=== PATIENT | female | born 1950 | race Caucasian/White ===

== ENCOUNTER → 2018-11-21 14:00 | Outpatient (CLI) | payer OTHER, SELFPAY ==
[2016-02-29 19:59] VITALS: BMI 27.3
[2018-11-21 16:00] LABS: T4 Free Direct 1.34 ng/dL (0.76-1.46); Thyroid Stim Hormone (TSH) 1.08 uIU/mL (0.358-3.74)
--- OUTSIDE RECORDS SUMMARY | 2019-01-23 13:53 | XMS RPT_ITS ---
:1950 Author Organization OHIP Care Team Providers Name Role Phone JIMBO ANGELES Attending Unavailable JIMBO ANGELES Referring Unavailable JIMBO ANGELES Referring Unavailable JIMBO ANGELES Referring Unavailable Pastor Perez Attending Unavailable Pastor Perez Referring Unavailable Pastor Perez Primary Care Unavailable PROBLEMS PROBLEMS DATE TYPE CONDITION / CODE ATTENDING STATUS SOURCE 01/28/2016 Active Essential NA Active [facility] (primary) [facility] [place] hypertension / Repository I10(ICD-10) 01/29/2016 Active Takotsubo syndrome NA Active [facility] / I51.81(ICD-10) [facility] [place] Repository 03/13/2018 Active Palpitations / NA Active [facility] R00.2(ICD-10) [facility] [place] Repository PROCEDURES PROCEDURES No Procedure Records FoundRESULTS RESULTS THYROID STIM HORMONE Collected: 11/21/2018 Status: F Source: [place] (TSH) 2:04 PM [facility] [place] [facility] Order Comment: Comments: ] TYPE CODE TESTS RESULT OUT OF RANGE REFERENCE UNITS LAB L501.9520 0.358-3.74 uIU/mL Normal TSH 1.08 Performed By: #### L501.9520, L506.0400 #### [place] [facility] [address] [place], [address] T4 FREE DIRECT Collected: 11/21/2018 Status: F Source: [place] 2:04 PM [facility] [place] [facility] Order Comment: Comments: ] TYPE CODE TESTS RESULT OUT OF RANGE REFERENCE UNITS LAB [id number] 0.76-1.46 ng/dL Normal T4 FREE 1.34 DIRECT Performed By: #### L501.9520, L506.0400 #### [facility] [address] [place], [address] BASIC METABOLIC PANL Collected: 03/13/2018 Status: F Source: [place] 2:41 PM [facility] [place] REPOSITORY TYPE CODE TESTS RESULT OUT OF REFERENCE UNITS RANGE LAB GLU 74-99 mg/dL Glucose 95 Result Comment: The [place] Diabetes Association (ADA) provides guidance for cutoff values for fasting glucose and random glucose. The ADA defines fasting as no caloric intake for at least 8 hours. Fas ting plasma glucose results between 100 to 125 mg/dL indicate increased risk for diabetes (prediabetes). Fasting plasma glucose results greater than or equal to 126 mg/dL meet the criteria for diagnosis of diabetes. In the absence of unequivocal hyperglycemia, results should be confirmed by repeat testing. In a patient with classic symptoms of hyperglycemia or hyperglycemic crisis, random plasma glucose results greater than or equal to 200 mg/dL meet the criteria for diagnosis of diabetes. Reference: Standards of Medical Care in Diabetes 2016, [place] Diabetes Association. Diabetes Care. 2016.39(Suppl 1). LAB BUN 7-21 mg/dL BUN 18 LAB CRET 0.58-0.96 mg/dL Creatinine 0.88 LAB NA 136-144 mmol/L Sodium 141 LAB K 3.7-5.1 mmol/L Potassium 4.3 LAB CL 97-105 mmol/L Chloride 101 LAB CO2 22-30 mmol/L CO2 28 LAB AGAP 9-18 mmol/L Anion Gap 12 LAB CA 8.5-10.2 mg/dL Calcium, Total 9.2 LAB GFRAA eGFR- Amer. >60 LAB GFRNAA . eGFR-All Other Races >60 Result Comment: eGFR (Estimated GFR) Units of measure: mL/min/1.73 meters squared eGFR is derived from the reexpressed MDRD Study equation using the following parameters: serum creatinine, age, gender and race. The creatinine assay has been calibrated to be traceable to IDMS. An eGFR <60 mL/min/1.73m2 for >3 months is consistent with chronic kidney disease. Refer to KDOQI guidelines for clinical interpretation. In patients with unstable renal function, e.g. those with acute kidney injury, the eGFR may not accurately reflect actual GFR. Performed By: #### BMP, NTBNP #### [facility] [address] [place], [place] [address] NT PRO BNP Collected: 03/13/2018 Status: F Source: [place] 2:41 PM [facility] [place] REPOSITORY TYPE CODE TESTS RESULT OUT OF REFERENCE UNITS RANGE LAB PBNP <125 pg/mL PRO B Natr 51 Peptide Performed By: #### BMP, NTBNP #### [facility] [address] [place], [place] [address] PROGRESS Observed: 03/13/2018 Status: COMPLETED Source: [place] 1:40 PM [facility] REPOSITORY HNO ID: [id number] Author: Jimbo Angeles Service: (none) Author Type: Physician Type: Progress Notes Filed: 03/13/2018 5:51 PM Note Text: Heart and Vascular [facility] SECTION OF HEART FAILURE and CARDIAC TRANSPLANT MEDICINE OUTPATIENT VISIT DATE March 13, 2018 OUTPATIENT VISIT TYPE NEW PRIMARY CARE PHYSICIAN: Pastor Perez MD ([facility]) [address] [place] [address] REFERRING PHYSICIAN: SELF CHIEF COMPLAINT: Takotsubo history Ongoing fatigue HISTORY OF PRESENT ILLNESS: Ms. Boudreaux presents today for an initial visit to the Heart Failure Clinic. Alexx Boudraeux is a 67 year old female with a history of non-obstructive CAD by cath 2016 (40-50% LAD disease), hypertension, dyslipidemia, and history of stress-induced CM diagnosed in 12/2015 with reduced LVEF 50% that subsequently improved to 65% in February 2016. She had one additional visit to ED in February 2016 where she developed mid-sternal chest pain. She went to the ED and had troponins checked which were normal. Subsequently her LVEF normalized. She is followed by Dr. Dayton Marsh at [facility]. She states her Takotsubo episode in 2016 was relatively mild in symptomology. She does not recall any stressors or triggers. Thus she has some anxiety about whether or not she might have a recurrence. She reports that initially she regained almost all of her energy after her initial episode of Takotsubo. However, in the past 6 months, she has been experiencing more fatigue and occasional palpitations. She has been taking 1 day off per week because she simply feels wiped out. She has occasionally has heaviness in the chest that might be indigestion. 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 SOB: Yes: mild, but can do > 2 flights of stairs Fatigue: Yes: chronic Orthopnea:No PND: No Edema:No Chest Pain:Yes: occasional pressure but mild Palpitations:Yes, that last for a few seconds and are sporadic Dizziness/Lightheadedness:No Syncope:No Appetite: good Diet:regular Fluid Restriction: No Regular Exercise: No PAST CARDIAC HISTORY: Heart failure: systolic Non-ischemic, subtype: Takotsubo. Her cardiac history is also significant for HTN. Device: NA. PAST MEDICAL HISTORY Diagnosis Date - Fibromyalgia - Hypertension - Hypothyroidism - Migraines PAST SURGICAL HISTORY Procedure Laterality Date - PAST SURGICAL HISTORY OF thyroid surgery - PAST SURGICAL HISTORY OF Right 1992 benign breast lump removed - REMOVE TONSILS/ADENOIDS,<12 Y/O - VAGINAL HYSTERECTOMY SOCIAL HISTORY Social History Substance Use Topics - Smoking status: Never Smoker - Smokeless tobacco: Never Used - Alcohol use 1.5 oz/week 1 Glasses of Wine (5oz) per week FAMILY HISTORY Problem Relation Age of Onset - Diabetes Father - Colon Cancer Mother ALLERGIES: ALLERGIES Allergen Reactions - Erythromycin - Tcn [Tetracyclines] CURRENT MEDICATIONS: atorvastatin (LIPITOR) 20 mg tablet Take 1 tablet by mouth daily at bedtime. levothyroxine (LEVOXYL) 100 mcg tablet Take 100 mcg by mouth daily before breakfast. UBIDECARENONE/VITAMIN E MIXED (COQ10 SG 100 ORAL) Take by mouth. carvedilol (COREG) 6.25 mg tablet Take 1 tablet by mouth twice daily. nitroglycerin sublingual (NITROQUICK) 0.4 mg SL tablet Dissolve 1 tablet under the tongue as needed. FOR CHEST PAIN. IF NO RELIEF CALL 911 Cholecalciferol, Vitamin D3, 2,000 unit cap Take 6,000 Units by mouth once daily. Magnesium 250 mg tab Take 250 mg by mouth twice daily. OTC NUTRITIONAL SUPPLEMENT [facility] nutritional supplement at [email or web address]. Takes 500 mg twice daily lactobacillus combo no.13 1 billion cell cpDR Take 1 capsule by mouth once daily. aspirin 81 mg chewable tablet Take 1 tablet by mouth once daily. lisinopril (ZESTRIL, PRINIVIL) 5 mg tablet Take 5 mg by mouth once daily. DOXEPIN 10 MG CAP two tablets at bedtime for sleep REVIEW OF SYSTEMS: GENERAL: Negative for: Weight loss or gain, Fever or Chills, Weakness and Sleep difficulties. HEENT: Negative for: Headache, Impaired Vision, Glasses, Hearing Impairment, Ringing in Ears, Nosebleeds, Poor dental care, Bleeding Gums, Dentures NECK: Negative for: Swelling, Pain, Stiffness RESPIRATORY: Negative for: Cough, Blood in Sputum, Shortness of breath, Wheezing, Apnea GASTROINTESTINAL: Negative for: Trouble swallowing, Heartburn, Change in bowel habits, Blood in stool, Dark black stools MUSCULOSKELETAL: Negative for: Muscle or joint pain, Stiffness , Joint swelling NEUROLOGIC/PSYCHIATRIC: Negative for: Weakness, Paralysis, Numbness, Tingling, Tremor, Nervousness, Depressed mood, Memory loss SKIN: Negative for: Rashes, Itching HEMATOLOGICAL/LYMPHATIC: Negative for: Easy bruising , Easy bleeding ENDOCRINE: Negative for: Heat or cold intolerance, Excessive sweating, Frequent urination, Frequent thirst PHYSICAL EXAMINATION: BP 136/71 Pulse 64 Ht 167.6 cm (5' 6) Wt 80.7 kg (178 lb) SpO2 97% BMI 28.73 kg/m? General: mildly overweight and mildly anxious woman in no distress, well appearing Skin: No clubbing, no cyanosis. Eyes: Extra ocular movements intact, Pale conjunctiva, Non- icteric sclerae Neck: Neck veins are not distended Lungs: Chest clear to auscultation Heart: Rhythm: regular rate and rhythm, Rate: normal, no murmur Abdomen: Palpation normal, Bowel Sounds: Present Extremities: Normal exam of the extremities Peripheral Pulses: Normal CARDIOVASCULAR MEDICINE TESTIN01/28/2016 TTE: - The left ventricle is normal in size. Left ventricular systolic function is mildly decreased. EF = 50 ? 5% (visual est.) Baseline left ventricular diastolic function was not evaluated due to inconsistent or technically suboptimal data and No LAE, however E/E' would suggest elevated flling pressures. EF 45-50%, dynamic function of basal segments. - The right ventricle is normal in size. Right ventricular systolic function is normal. - Moderae focal thickening and calcification of the anterior MV leaflet. Mild (1+) ?MR - There is moderate (2+) tricuspid valve regurgitation. - Mildly prominent ascending aorta to 4.0 cm. 01/28/2016 LHC: LM: Normal LAD: 40-50% focal proximal stenosis LCX: Non-dominant, normal RCA: Dominant, normal ? Ventriculography Approximate LVEF 40-45%. The apical anterior segment is severely hypokinetic and apex is akinetic. Mild mitral regurgitation. 03/08/2016 TTE: - The left ventricle is normal in size. There is mild upper septal left ventricular hypertrophy. Left ventricular systolic function is normal. EF = 60 ? 5% (visual est.) Baseline left ventricular diastolic function was not evaluated due to inconsistent or technically suboptimal data. - The right ventricle is normal in size. Right ventricular systolic function is normal. - Estimated right ventricular systolic pressure is 26 mmHg consistent with normal pulmonary artery pressures. Estimated right atrial pressure is 5 mmHg. - Ascending aorta is mildly dilated. - Exam was compared with the prior echocardiographic exam performed on 01/28/2016. LV function has normalized. Cholesterol, Total Date Value Ref Range Status 07/01/2017 161 100 - 199 mg/dL Final HDL Cholesterol Date Value Ref Range Status 07/01/2017 70 >55 mg/dL Final LDL Cholesterol Date Value Ref Range Status 07/01/2017 71 60 - 129 mg/dL Final Triglyceride Date Value Ref Range Status 07/01/2017 99 30 - 149 mg/dL Final NT Pro BNP Date Value Ref Range Status 01/28/2016 616 (H) <125 pg/mL Final TSH Date Value Ref Range Status 01/28/2016 2.570 0.400 - 5.500 uU/mL Final 06/17/2017 T4 direct 1.25 TSH 0.93 I have personally reviewed the Electrocardiogram, Laboratory Testing, Echocardiogram and Cardiac CT Coronary Angiography. IMPRESSION: Ms. Boudreaux presents today for an initial visit to the Heart Failure Clinic. Alexx Boudreaux is a 67 year old female with a history of non-obstructive CAD by cath 2015 (40-50% LAD disease), hypertension, dyslipidemia, and history of stress-induced CM diagnosed in 12/2015 with reduced LVEF 50% that subsequently improved to 65% in February 2016. However, she has continued to have subjective fatigue with very rare palpitations and atypical chest pain. We will obtain an echocardiogram today and some blood work. In general, she appears compensated on exam. We will encourage exercise and believe the fatigue is likely non-cardiac in nature. NYHA Functional Class: II Stage: C heart failure Heart Failure specific medications (list current, note updates or changes, note prior intolerance): BB: carvedilol 6.25mg BID ACEI/ARB/ARNI: lisinopril 5mg MRA: NA Diuretic: NA Digoxin: NA Vasodilators: SLN PRN Anti-arrhythmics: NA Ivabradine:? NA Other anti-HTN:? NA PLAN AND RECOMMENDATIONS: -- for CAD, asymptomatic, continue with aspirin and statin medication -- discussed indications for sublingual nitroglycerin (chest pressure, heaviness) -- for hx of takotsubo, 10% recurrence risk, agree with continuation of BB and JOJO -- obtain repeat echocardiogram with strain -- Cardiac rehab phase II -- check HaiderroBSHAMIR Ashford MD [employer], PGY6 Pager [phone] 1:40 PM I personally interviewed, confirmed and edited the above information as obtained by others. I estimate this patients dry weight is 178lb. Followup appointment with Brett Angeles MD in 12 months. COUNSELING: We discussed the following non-pharmacological measures during this visit: ? Smoking and alcohol abstinence/cessation, if applicable ? Dietary and medication compliance ? Monitoring daily weights and blood pressures ? Exercise regimen ? When to call our office I spent 60 minutes in this visit, with more than 50% of the time devoted to patient counseling. Brooks Angeles MD March 13, 2018 5:50 PM CNOV Observed: 03/13/2018 Status: COMPLETED Source: [place] 12:00 PM [facility] REPOSITORY Office Visit (CARD CHF DANIELE) ALEXX BOUDREAUX ([id number]) 1950 F Date Time Provider Department 03/13/18 12:00 PM JIM[facility] ANGELES [facility] During your visit today, we recorded the following information about you: Pulse Blood pressure Weight Height 64/minute 136/71 80.7 kg 1.676 m Brooks Joan Angeles MD 03/13/2018 5:51 PM Signed Heart and Vascular [facility] SECTION OF HEART FAILURE and CARDIAC TRANSPLANT MEDICINE OUTPATIENT VISIT DATE March 13, 2018 OUTPATIENT VISIT TYPE NEW PRIMARY CARE PHYSICIAN: Pastor Perez MD ([facility]) [address] [place] [address] REFERRING PHYSICIAN: SELF CHIEF COMPLAINT: Takotsubo history Ongoing fatigue HISTORY OF PRESENT ILLNESS: Ms. Boudreaux presents today for an initial visit to the Heart Failure Clinic. Alexx Boudreaux is a 67 year old female with a history of non-obstructive CAD by cath 2016 (40-50% LAD disease), hypertension, dyslipidemia, and history of stress-induced CM diagnosed in 12/2015 with reduced LVEF 50% that subsequently improved to 65% in February 2016. She had one additional visit to ED in February 2016 where she developed mid-sternal chest pain. She went to the ED and had troponins checked which were normal. Subsequently her LVEF normalized. She is followed by Dr. Dayton Marsh at [facility]. She states her Takotsubo episode in 2016 was relatively mild in symptomology. She does not recall any stressors or triggers. Thus she has some anxiety about whether or not she might have a recurrence. She reports that initially she regained almost all of her energy after her initial episode of Takotsubo. However, in the past 6 months, she has been experiencing more fatigue and occasional palpitations. She has been taking 1 day off per week because she simply feels wiped out. She has occasionally has heaviness in the chest that might be indigestion. 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 SOB: Yes: mild, but can do > 2 flights of stairs Fatigue: Yes: chronic Orthopnea:No PND: No Edema:No Chest Pain:Yes: occasional pressure but mild Palpitations:Yes, that last for a few seconds and are sporadic Dizziness/Lightheadedness:No Syncope:No Appetite: good Diet:regular Fluid Restriction: No Regular Exercise: No PAST CARDIAC HISTORY: Heart failure: systolic Non-ischemic, subtype: Takotsubo. Her cardiac history is also significant for HTN. Device: NA. PAST MEDICAL HISTORY Diagnosis Date - Fibromyalgia - Hypertension - Hypothyroidism - Migraines PAST SURGICAL HISTORY Procedure Laterality Date - PAST SURGICAL HISTORY OF thyroid surgery - PAST SURGICAL HISTORY OF Right 1992 benign breast lump removed - REMOVE TONSILS/ADENOIDS,<12 Y/O - VAGINAL HYSTERECTOMY SOCIAL HISTORY Social History Substance Use Topics - Smoking status: Never Smoker - Smokeless tobacco: Never Used - Alcohol use 1.5 oz/week 1 Glasses of Wine (5oz) per week FAMILY HISTORY Problem Relation Age of Onset - Diabetes Father - Colon Cancer Mother ALLERGIES: ALLERGIES Allergen Reactions - Erythromycin - Tcn [Tetracyclines] CURRENT MEDICATIONS: atorvastatin (LIPITOR) 20 mg tablet Take 1 tablet by mouth daily at bedtime. levothyroxine (LEVOXYL) 100 mcg tablet Take 100 mcg by mouth daily before breakfast. UBIDECARENONE/VITAMIN E MIXED (COQ10 SG 100 ORAL) Take by mouth. carvedilol (COREG) 6.25 mg tablet Take 1 tablet by mouth twice daily. nitroglycerin sublingual (NITROQUICK) 0.4 mg SL tablet Dissolve 1 tablet under the tongue as needed. FOR CHEST PAIN. IF NO RELIEF CALL 911 Cholecalciferol, Vitamin D3, 2,000 unit cap Take 6,000 Units by mouth once daily. Magnesium 250 mg tab Take 250 mg by mouth twice daily. OTC NUTRITIONAL SUPPLEMENT [facility] nutritional supplement at [email or web address]. Takes 500 mg twice daily lactobacillus combo no.13 1 billion cell cpDR Take 1 capsule by mouth once daily. aspirin 81 mg chewable tablet Take 1 tablet by mouth once daily. lisinopril (ZESTRIL, PRINIVIL) 5 mg tablet Take 5 mg by mouth once daily. DOXEPIN 10 MG CAP two tablets at bedtime for sleep REVIEW OF SYSTEMS: GENERAL: Negative for: Weight loss or gain, Fever or Chills, Weakness and Sleep difficulties. HEENT: Negative for: Headache, Impaired Vision, Glasses, Hearing Impairment, Ringing in Ears, Nosebleeds, Poor dental care, Bleeding Gums, Dentures NECK: Negative for: Swelling, Pain, Stiffness RESPIRATORY: Negative for: Cough, Blood in Sputum, Shortness of breath, Wheezing, Apnea GASTROINTESTINAL: Negative for: Trouble swallowing, Heartburn, Change in bowel habits, Blood in stool, Dark black stools MUSCULOSKELETAL: Negative for: Muscle or joint pain, Stiffness , Joint swelling NEUROLOGIC/PSYCHIATRIC: Negative for: Weakness, Paralysis, Numbness, Tingling, Tremor, Nervousness, Depressed mood, Memory loss SKIN: Negative for: Rashes, Itching HEMATOLOGICAL/LYMPHATIC: Negative for: Easy bruising , Easy bleeding ENDOCRINE: Negative for: Heat or cold intolerance, Excessive sweating, Frequent urination, Frequent thirst PHYSICAL EXAMINATION: BP 136/71 Pulse 64 Ht 167.6 cm (5' 6) Wt 80.7 kg (178 lb) SpO2 97% BMI 28.73 kg/m? General: mildly overweight and mildly anxious woman in no distress, well appearing Skin: No clubbing, no cyanosis. Eyes: Extra ocular movements intact, Pale conjunctiva, Non- icteric sclerae Neck: Neck veins are not distended Lungs: Chest clear to auscultation Heart: Rhythm: regular rate and rhythm, Rate: normal, no murmur Abdomen: Palpation normal, Bowel Sounds: Present Extremities: Normal exam of the extremities Peripheral Pulses: Normal CARDIOVASCULAR MEDICINE TESTIN01/28/2016 TTE: - The left ventricle is normal in size. Left ventricular systolic function is mildly decreased. EF = 50 ? 5% (visual est.) Baseline left ventricular diastolic function was not evaluated due to inconsistent or technically suboptimal data and No LAE, however E/E' would suggest elevated flling pressures. EF 45-50%, dynamic function of basal segments. - The right ventricle is normal in size. Right ventricular systolic function is normal. - Moderae focal thickening and calcification of the anterior MV leaflet. Mild (1+) ?MR - There is moderate (2+) tricuspid valve regurgitation. - Mildly prominent ascending aorta to 4.0 cm. 01/28/2016 LHC: LM: Normal LAD: 40-50% focal proximal stenosis LCX: Non-dominant, normal RCA: Dominant, normal ? Ventriculography Approximate LVEF 40-45%. The apical anterior segment is severely hypokinetic and apex is akinetic. Mild mitral regurgitation. 03/08/2016 TTE: - The left ventricle is normal in size. There is mild upper septal left ventricular hypertrophy. Left ventricular systolic function is normal. EF = 60 ? 5% (visual est.) Baseline left ventricular diastolic function was not evaluated due to inconsistent or technically suboptimal data. - The right ventricle is normal in size. Right ventricular systolic function is normal. - Estimated right ventricular systolic pressure is 26 mmHg consistent with normal pulmonary artery pressures. Estimated right atrial pressure is 5 mmHg. - Ascending aorta is mildly dilated. - Exam was compared with the prior echocardiographic exam performed on 01/28/2016. LV function has normalized. Cholesterol, Total Date Value Ref Range Status 07/01/2017 161 100 - 199 mg/dL Final HDL Cholesterol Date Value Ref Range Status 07/01/2017 70 >55 mg/dL Final LDL Cholesterol Date Value Ref Range Status 07/01/2017 71 60 - 129 mg/dL Final Triglyceride Date Value Ref Range Status 07/01/2017 99 30 - 149 mg/dL Final NT Pro BNP Date Value Ref Range Status 01/28/2016 616 (H) <125 pg/mL Final TSH Date Value Ref Range Status 01/28/2016 2.570 0.400 - 5.500 uU/mL Final 06/17/2017 T4 direct 1.25 TSH 0.93 I have personally reviewed the Electrocardiogram, Laboratory Testing, Echocardiogram and Cardiac CT Coronary Angiography. IMPRESSION: Ms. Boudreaux presents today for an initial visit to the Heart Failure Clinic. Alexx Boudreaux is a 67 year old female with a history of non-obstructive CAD by cath 2015 (40-50% LAD disease), hypertension, dyslipidemia, and history of stress-induced CM diagnosed in 12/2015 with reduced LVEF 50% that subsequently improved to 65% in February 2016. However, she has continued to have subjective fatigue with very rare palpitations and atypical chest pain. We will obtain an echocardiogram today and some blood work. In general, she appears compensated on exam. We will encourage exercise and believe the fatigue is likely non-cardiac in nature. NYHA Functional Class: II Stage: C heart failure Heart Failure specific medications (list current, note updates or changes, note prior intolerance): BB: carvedilol 6.25mg BID ACEI/ARB/ARNI: lisinopril 5mg MRA: NA Diuretic: NA Digoxin: NA Vasodilators: SLN PRN Anti-arrhythmics: NA Ivabradine:? NA Other anti-HTN:? NA PLAN AND RECOMMENDATIONS: -- for CAD, asymptomatic, continue with aspirin and statin medication -- discussed indications for sublingual nitroglycerin (chest pressure, heaviness) -- for hx of takotsubo, 10% recurrence risk, agree with continuation of BB and JOJO -- obtain repeat echocardiogram with strain -- Cardiac rehab phase II -- check NTproBNP Darryn Ashford MD [employer], PGY6 Pager [phone] 1:40 PM I personally interviewed, confirmed and edited the above information as obtained by others. I estimate this patients dry weight is 178lb. Followup appointment with Brett Angeles MD in 12 months. COUNSELING: We discussed the following non-pharmacological measures during this visit: ? Smoking and alcohol abstinence/cessation, if applicable ? Dietary and medication compliance ? Monitoring daily weights and blood pressures ? Exercise regimen ? When to call our office I spent 60 minutes in this visit, with more than 50% of the time devoted to patient counseling. Brooks Angeles MD March 13, 2018 5:50 PM Referring Provider: SELF [[id number]] Allergies As of Date: 03/13/2018 Noted Allergy Reaction ERYTHROMYCIN 10/20/2005 TCN (TETRACYCLINES) 10/20/2005 Date Reviewed: 03/13/2018 Reviewed by: Jimbo Angeles - Fully Assessed Reason for Visit: Follow Up [171] Primary Visit Diagnosis:Takotsubo cardiomyopathy [I51.81] Other Visit Diagnoses:Non-obstructive coronary artery disease involving the [place] coronary artery of the [place] heart with angina pectoris (HCC) [I25.119] Primary hypertension [I10] Palpitations [R00.2] Fatigue, unspecified type [R53.83] Order(s):ECHO [602981] Order #: [id number]: 1 FUTURE NT PRO BNP [SQNTBNP] Order #: [id number] FUTURE BASIC METABOLIC PNL [SQBMP] Order #: [id number] FUTURE CONSULT TO CARD REHAB PHASE II [] Order #: [id number]: 1 ECG COMPLETE W INTERPRETATION [ECG01] Order #: [id number] FUTURE Prescriptions as of 03/13/2018 Sig: DOXEPIN 10 MG CAPSULE Take 1 capsule by mouth daily* ATORVASTATIN 20 MG TABLET Take 1 tablet by mouth daily * LEVOTHYROXINE 100 MCG TABLET Take 100 mcg by mouth daily b* COQ10 SG 100 ORAL Take by mouth. CARVEDILOL 6.25 MG TABLET Take 1 tablet by mouth twice * NITROGLYCERIN 0.4 MG SUBLINGU* Dissolve 1 tablet under the t* CHOLECALCIFEROL (VITAMIN D3) * Take 6,000 Units by mouth onc* MAGNESIUM 250 MG TABLET Take 250 mg by mouth twice da* OTC NUTRITIONAL SUPPLEMENT CC nutritional supplement a* ASPIRIN 81 MG CHEWABLE TABLET Take 1 tablet by mouth once d* LISINOPRIL 5 MG TABLET Take 5 mg by mouth once daily. Problem List As Of Date 03/13/2018 Noted Resolved DIFFUS CYSTIC MASTOPATHY [N60.19] INVALID FOR* Hypothyroidism [E03.9] INVALID FOR* Takotsubo cardiomyopathy [I51.81] INVALID FOR* Priority: Very Severe Primary hypertension [I10] INVALID FOR* Priority: B Fibromyalgia [M79.7] INVALID FOR* Non-obstructive coronary artery disease involvi*INVALID FOR* Medications Discontinued During This Encounter DOXEPIN 10 MG CAP 0 06/16/2006 03/13/2018 Class: Historical Med Route: ORAL Sig: two tablets at bedtime for sleep Disc: Reason for discontinue is not on file. lactobacillus combo no.13 1 billion * 03/13/2018 Class: Historical Med Route: ORAL Sig: Take 1 capsule by mouth once daily. Disc: Course of therapy completed Disposition: Return in about 1 year (around 03/13/2019). Follow-up and Disposition History Recorded Encounter Status:Closed by JIMBO ANGELES MD on 03/13/18 ALLERGIES ALLERGIES DATE TYPE / CODE NAME / CODE REACTION SEVERITY SOURCE 02/29/2016 Drug Penicillins/[id number] Hives Unknown [facility] Allergy/416 476(RXNORM) [facility] [id number][facility] [place]) Repository 02/29/2016 Drug tetracycline/Y83406 Rash Unknown Alpha Allergy/416 2738(RXNORM) [facility] [id number]([facility] [place]) Repository 02/29/2016 Drug azithromycin/B52569 Rash Unknown Alpha Allergy/416 3635(RXNORM) [facility] [id number]([facility]) Repository 10/20/2005 DRUG/325119 ERYTHROMYCIN [facility] 003(SNOMED [address]) Repository 10/20/2005 Drug TETRACYCLINES [facility] Class/05094 [address](SNOMED Repository CT) ENCOUNTERS ENCOUNTERS ADMIT/DISCHARGE ACCOUNT ADMITTING ENCOUNTER LOCATION SOURCE NUMBER CLASS 11/21/2018 [id number] Ambulatory [facility] ing:LAB Repository 04/02/2018/04/03/20 [id number] Ambulatory [address] Repository 03/13/2018 [id number] Ambulatory [facility] Repository 03/13/2018/03/13/20 [id number] Ambulatory [address] Repository 03/13/2018/03/14/20 [id number] Ambulatory [address] Repository PAYERS PAYERS ENCOUNTER GUARANTOR PAYER SUBSCRIBER SOURCE 11/21/2018 ALEXX BOUDREAUX1515 Primary ALEXX SIDDIQUIB: Esther HENSLEY [id number] [facility] [id number]: (262) [id number] Repository [phone] () Date:[id number] [address]WL: 11/21/2018 Secondary NOT GIVENUNK Esther Insurance:SELF PAY [facility]: Effective Repository Date:2018-11-21
== END ==
PROVIDERS: Family Provider Family Medicine; PCP Family Medicine; Referring Provider Family Medicine; Visit Provider Family Medicine
DX: E03.9 Hypothyroidism, unspecified (principal)
CPT/HCPCS: 36415; 84439; 84443

== ENCOUNTER → 2019-03-18 | Outpatient (CLI) | payer OTHER, SELFPAY ==
[2016-02-29 19:59] VITALS: BMI 27.3
== END | disposition home or self-care (01) ==
LOC: LABSPEC 14:17
PROVIDERS: Family Provider Family Medicine; PCP Family Medicine; Referring Provider Family Medicine; Visit Provider Family Medicine
DX: N61.1 Abscess of the breast and nipple (principal)
CPT/HCPCS: 87070; 87077; 87186; 87205

== ENCOUNTER → 2019-08-28 10:07 | Outpatient (CLI) | payer OTHER, SELFPAY ==
--- NOTE | 2019-08-28 10:11 | BI_ITS ---
MAMMOGRAPHY - BILATERAL SCREENING REASON FOR EXAM: Female, 69 years old. Routine annual screening examination. PERTINENT HISTORY: Grandmother with breast cancer. Prior right stereotactic biopsy and excisional biopsy. TECHNIQUE: Digital bilateral breast cliff (3D mammographic acquisition) in the CC and MLO projections. 2-D mediolateral oblique (MLO) and craniocaudad (CC) views of both breasts were obtained. CAD: Full Field Digital Mammography with Computer Added Detection was performed. COMPARISON: Comparison is made with prior examination dated June 30, 2016 and August 26, 2010. FINDINGS: Breast Composition: There are scattered areas of fibroglandular density. There are no dominant masses or suspicious calcifications. Stable small benign-appearing bilateral axillary lymph nodes. A tissue clip marker is seen in the upper slightly medial portion of the right breast. No other significant abnormalities are identified. There has been no significant change since the prior study. BI/SCREEN MAMM (CAD) W/CLIFF BILAT IMPRESSION: Stable bilateral screening mammogram. Yearly follow-up mammogram recommended. (A) ASSESSMENT CATEGORY: BIRADS Category 2: Benign. A letter regarding these results will be sent to the patient by the facility within 30 days. Approximately 10% of breast cancers are not detected by mammography. A normal mammogram should not delay biopsy of a clinically suspicious abnormality. [id number] Electronically Signed: Rick Chow, at 12:44 EDT , Service support ,
== END ==
PROVIDERS: Family Provider Family Medicine; PCP Family Medicine; Referring Provider Family Medicine; Visit Provider Family Medicine
DX: Z00.00 Encounter for general adult medical examination without abnormal findings (principal); Z12.31 Encounter for screening mammogram for malignant neoplasm of breast
CPT/HCPCS: 77063; 77067

== ENCOUNTER → 2020-09-05 08:35 | Outpatient (CLI) | payer OTHER, SELFPAY ==
[2016-02-29 19:59] VITALS: BMI 27.3
[2020-09-05 10:13] LABS: Vitamin D,25 Hydroxy 33.1 ng/mL
[2020-09-05 10:26] LABS: AST(SGOT) 16 U/L (15-37); Alanine Aminotransfer ALT/SGPT 28 U/L (13-56); Albumin, Serum 3.6 g/dL (3.2-5.0); Alkaline Phosphatase 111 U/L (45-117); Anion Gap 7 (5-15); BUN 17 mg/dL (7-18); BUN/Creat Ratio 19.6 RATIO (10-20); Calcium,Total 9.2 mg/dL (8.5-10.1); Chloride 108 mmol/L (98-107); Cholesterol 148 mg/dL (200); Creatinine, Serum 0.87 mg/dL (0.55-1.02); EST Glomerular Filtration Rate 69 mL/min (>60); Est Glom Filt Rate - Afr Amer 83 mL/min (>60); Globulin 3.6 g/dL (2.2-4.2); Glucose 102 mg/dL (74-106); High Density Lipoprotein 73 mg/dL; Potassium 4.3 mmol/L (3.5-5.1); Protein, Total 7.2 g/dL (6.4-8.2); Sodium Level 140 mmol/L (136-145); Thyroid Stim Hormone (TSH) 1.63 uIU/mL (0.358-3.74); Triglycerides 99 mg/dL; Very Low Density Lipoprotein 20 mg/dL (5-40)
[2020-09-05 11:42] LABS: Microalbumin,Random Urine 5.3 mg/L (NO RANGE EST.); Microalbumin:Creatinine Ratio 6.6 mg/g CRE (<30 mg/g CRE)
== END ==
PROVIDERS: PCP Family Medicine; Visit Provider Family Medicine
DX: E78.00 Pure hypercholesterolemia, unspecified (principal); I10 Essential (primary) hypertension; E03.9 Hypothyroidism, unspecified; M85.80 Other specified disorders of bone density and structure, unspecified site
CPT/HCPCS: 36415; 80053; 80061; 82043; 82306; 82570; 84443

== ENCOUNTER 2020-12-31 08:41 | Outpatient (RCR) | payer MEDICARE, OTHER, SELFPAY ==
[2016-02-29 19:59] VITALS: BMI 27.3
[2020-12-31] MEDS: COVID-19 VACC, MRNA(PFIZER)/PF 30 MCG/0.3 ML SYRINGE IM (13:47)
[2021-01-21] MEDS: COVID-19 VACC, MRNA(PFIZER)/PF 30 MCG/0.3 ML SYRINGE IM (13:25)
== END 2021-04-06 23:59 ==
LOC: IMMUN 08:41
PROVIDERS: PCP Family Medicine; Referring Provider Family Medicine; Visit Provider Family Medicine
DX: Z23 Encounter for immunization (principal)
CPT/HCPCS: 0001A; 0002A; 91300

== ENCOUNTER 2021-12-22 12:27 | Outpatient (CLI) | payer MEDICARE, OTHER, SELFPAY ==
--- NOTE | 2021-12-22 12:30 | BI_ITS ---
MAMMOGRAPHY - BILATERAL SCREENING REASON FOR EXAM: Female, 71 years old. Routine annual screening examination. PERTINENT HISTORY: Grandmother with breast cancer. History of prior right stereotactic and right excisional breast biopsies. TECHNIQUE: Digital bilateral breast cliff (3D mammographic acquisition) in the CC and MLO projections. 2-D mediolateral oblique (MLO) and craniocaudad (CC) views of both breasts were obtained. CAD: Full Field Digital Mammography with Computer Added Detection was performed. COMPARISON: Comparison is made with prior examination dated 08/28/2019 and 06/30/2016. FINDINGS: Breast Composition: There are scattered areas of fibroglandular density. There are no dominant masses or suspicious calcifications. A tissue clip marker is once again seen in the upper slightly medial portion of the right breast. Stable small benign-appearing bilateral axillary lymph nodes. No other significant abnormalities are identified. There has been no significant change since the prior study. BI/SCRN MAMM (CAD)W/CLIFF BILAT IMPRESSION: Stable bilateral screening mammogram. Yearly follow-up mammogram recommended. (A) ASSESSMENT CATEGORY: BIRADS Category 2: Benign. A letter regarding these results will be sent to the patient by the facility within 30 days. Approximately 10% of breast cancers are not detected by mammography. A normal mammogram should not delay biopsy of a clinically suspicious abnormality. [id number] Electronically Signed: Rick Chow MD at 13:17 EST ,
== END 2021-12-22 23:59 | disposition home or self-care (01) ==
LOC: OPBI 12:28
PROVIDERS: PCP Family Medicine; Visit Provider Family Medicine
DX: Z12.31 Encounter for screening mammogram for malignant neoplasm of breast (principal)
CPT/HCPCS: 77063; 77067

== ENCOUNTER 2022-01-26 07:59 | Outpatient (CLI) | payer MEDICARE, OTHER, SELFPAY ==
[2022-01-26 09:05] LABS: Vitamin D,25 Hydroxy 53.6 ng/mL
[2022-01-26 09:12] LABS: ALB/GLOB Ratio 1.1 RATIO (0.9-2.4); AST(SGOT) 19 U/L (15-37); Alanine Aminotransfer ALT/SGPT 22 U/L (13-56); Albumin, Serum 3.6 g/dL (3.2-5.0); Alkaline Phosphatase 88 U/L (45-117); Anion Gap 5 (5-15); BUN 21 mg/dL (7-18); Calcium,Total 8.8 mg/dL (8.5-10.1); Chloride 109 mmol/L (98-107); Creatinine, Serum 0.78 mg/dL (0.55-1.02); EST Glomerular Filtration Rate 78 mL/min (>60); Est Glom Filt Rate - Afr Amer 94 mL/min (>60); Globulin 3.4 g/dL (2.2-4.2); Glucose 94 mg/dL (74-106); Magnesium 2.4 mg/dL (1.6-2.6); Potassium 4.4 mmol/L (3.5-5.1); Sodium Level 140 mmol/L (136-145); Thyroid Stim Hormone (TSH) 0.72 uIU/mL (0.358-3.74)
[2022-01-26 11:20] LABS: Microalbumin,Random Urine 6.1 mg/L (NO RANGE EST.); Microalbumin:Creatinine Ratio 8.1 mg/g CRE (<30 mg/g CRE)
== END 2022-01-26 23:59 | disposition home or self-care (01) ==
LOC: LAB 08:01
PROVIDERS: PCP Family Medicine; Visit Provider Family Medicine
DX: I10 Essential (primary) hypertension (principal); M79.7 Fibromyalgia; M85.80 Other specified disorders of bone density and structure, unspecified site; E03.9 Hypothyroidism, unspecified
CPT/HCPCS: 36415; 80053; 82043; 82306; 82570; 83735; 84443

== ENCOUNTER → 2022-04-12 | Outpatient (CLI) | payer MEDICARE, OTHER, SELFPAY ==
--- NOTE | 2022-04-12 13:59 | BD_ITS ---
STUDY: DUAL ENERGY X-RAY ABSORPTIOMETRY / DXA REASON FOR EXAM: Female, 71 years old. Z780 TECHNIQUE: Bone Mineral Density (BMD) measurements of lumbar spine and bilateral hips were obtained. COMPARISON: Comparison is made with prior study 06/30/2016. FINDINGS: Lumbar Spine (L1-L4): g/cm2 (0.935) / T-score (-1.0) / Z-score (1.2) Findings are suggestive of normal bone density with a low fracture risk. Left Femur Total: g/cm2 (0.860) / T-score (-0.7) / Z-score (0.9) Left Femoral Neck: g/cm2 (0.665) / T-score (-1.7) / Z-score (0.2) Right Femur Total: g/cm2 (0.888) / T-score (-0.4) / Z-score (1.2) Right Femoral Neck: g/cm2 (0.684) / T-score (-1.5) / Z-score (0.4) The T-Scores on the most recent prior examination were: Lumbar Spine (L1-L4): There has been worsening of bone density since the previous examination. Left Femur Total: which represents an improvement of 1.3%. Right Femur Total: which represents a worsening of 0.5%. BD/Dexa Bone Density Study IMPRESSION: The patient is considered osteopenic as outlined below according to World Jimbo Organization (WHO) criteria with a moderate fracture risk. There has been worsening of bone density since the previous examination. Reference Information: The T-score is the number of standard deviations above or below the standard which is normal for young adults at their peak bone mineral density. The World Health Organization (WHO) interprets the T-scores as follows: Above -1 Normal bone density Between -1 and -2.5 Osteopenia Equal to / or below -2.5 Osteoporosis As a practical clinical guideline, osteopenia may be graded as follows: Mild -1 through -1.5 Moderate -1.6 through -2.0 Severe -2.1 through -2.4 The Z-score is the number of standard deviations above or below age-matched controls. A Z-score of less than -1.5 would be considered abnormal. References: 1. NIH Osteoporosis and Related Bone Diseases www osteo.org 2. International Society for Clinical Densitometry www iscd.org 3. National Osteoporosis Foundation www nof.org Electronically Signed: Rick Chow MD at 15:27 EDT ,
== END | disposition home or self-care (01) ==
LOC: OPBD 13:54
PROVIDERS: PCP Family Medicine; Referring Provider Family Medicine; Visit Provider Family Medicine
DX: Z00.00 Encounter for general adult medical examination without abnormal findings (principal); M85.80 Other specified disorders of bone density and structure, unspecified site; Z78.0 Asymptomatic menopausal state
CPT/HCPCS: 77080

== ENCOUNTER → 2022-09-06 | Outpatient (CLI) | payer MEDICARE, OTHER, SELFPAY ==
[2022-09-06 09:30] LABS: AST(SGOT) 19 U/L (15-37); Alanine Aminotransfer ALT/SGPT 28 U/L (13-56); Albumin, Serum 3.7 g/dL (3.2-5.0); Alkaline Phosphatase 116 U/L (45-117); Anion Gap 7 (5-15); BUN 22 mg/dL (7-18); Chloride 106 mmol/L (98-107); Creatinine, Serum 0.82 mg/dL (0.55-1.02); EST Glomerular Filtration Rate 73 mL/min (>60); Est Glom Filt Rate - Afr Amer 89 mL/min (>60); Globulin 3.7 g/dL (2.2-4.2); Glucose 86 mg/dL (74-106); Protein, Total 7.4 g/dL (6.4-8.2); Sodium Level 140 mmol/L (136-145)
[2022-09-06 11:47] LABS: Microalbumin,Random Urine < 5.0 mg/L (NO RANGE EST.)
== END | disposition home or self-care (01) ==
LOC: LAB 07:41
PROVIDERS: PCP Family Medicine; Referring Provider Family Medicine; Visit Provider Family Medicine
DX: I10 Essential (primary) hypertension (principal)
CPT/HCPCS: 36415; 80053; 82043; 82570

== ENCOUNTER → 2023-03-20 | Outpatient (CLI) | payer MEDICARE, OTHER, SELFPAY ==
[2023-03-20 16:54] LABS: Vitamin D,25 Hydroxy 43.6 ng/mL
[2023-03-20 16:59] LABS: AST(SGOT) 20 U/L (15-37); Alanine Aminotransfer ALT/SGPT 29 U/L (13-56); Albumin, Serum 3.8 g/dL (3.2-5.0); Alkaline Phosphatase 107 U/L (45-117); Anion Gap 5 (5-15); BUN 21 mg/dL (7-18); BUN/Creat Ratio 26.4 RATIO (10-20); Chloride 105 mmol/L (98-107); Cholesterol 150 mg/dL (200); EST Glomerular Filtration Rate 75 mL/min (>60); Est Glom Filt Rate - Afr Amer 91 mL/min (>60); Free T3 2.3 pg/mL (2.18-3.98); Globulin 3.7 g/dL (2.2-4.2); Glucose 101 mg/dL (74-106); High Density Lipoprotein 71 mg/dL; Potassium 4.2 mmol/L (3.5-5.1); Protein, Total 7.5 g/dL (6.4-8.2); Sodium Level 139 mmol/L (136-145); T4 Free Direct 1.21 ng/dL (0.76-1.46); Thyroid Stim Hormone (TSH) 0.76 uIU/mL (0.358-3.74); Triglycerides 165 mg/dL; Very Low Density Lipoprotein 33 mg/dL (5-40)
[2023-03-20 17:03] LABS: Microalbumin,Random Urine 53.8 mg/L (NO RANGE EST.); Microalbumin:Creatinine Ratio 94.2 mg/g CRE (<30 mg/g CRE)
== END | disposition home or self-care (01) ==
LOC: LAB 15:54
PROVIDERS: PCP Family Medicine; Referring Provider Family Medicine; Visit Provider Family Medicine
DX: E03.9 Hypothyroidism, unspecified (principal); I10 Essential (primary) hypertension; M85.80 Other specified disorders of bone density and structure, unspecified site
CPT/HCPCS: 36415; 80053; 80061; 82043; 82306; 82570; 84439; 84443; 84481

== ENCOUNTER → 2024-03-29 | Outpatient (CLI) | payer MEDICARE, OTHER, SELFPAY | END | disposition home or self-care (01) | LOC: LABSPEC 16:11 | PROVIDERS: PCP Family Medicine; Referring Provider Family Medicine; Visit Provider Family Medicine | DX: N61.1 Abscess of the breast and nipple (principal) | CPT/HCPCS: 87070; 87077; 87186; 87205 ==

== ENCOUNTER → 2024-04-09 | Outpatient (CLI) | payer MEDICARE, OTHER, SELFPAY ==
--- NOTE | 2024-04-09 09:15 | BI_ITS ---
MAMMOGRAPHY - BILATERAL DIAGNOSTIC REASON FOR EXAM: Female, 73 years old. History of prior breast abscess. PERTINENT HISTORY: Grandmother with breast cancer. Remote right excisional breast biopsy. TECHNIQUE: Digital bilateral breast christen (3D mammographic acquisition) in the CC and MLO projections. 2-D mediolateral oblique (MLO) and craniocaudad (CC) views of both breasts were obtained. CAD: Full Field Digital Mammography with Computer Added Detection was performed. COMPARISON: Comparison is made with prior study dated December 22, 2021 and August 28, 2019. FINDINGS: Breast Composition: There are scattered areas of fibroglandular density. There are no dominant masses or suspicious calcifications. A tissue clip marker is once again seen in the upper slightly medial portion of the right breast. There is a 7.4 mm skin lesion in the inferior medial aspect of the right breast suggestive of a sebaceous cyst. Correlation with ultrasound is recommended. Stable bilateral fat containing axillary lymph nodes. No other significant abnormalities are identified. BI/DIAG MAMM W/CAD, BILAT IMPRESSION: Findings suggestive of a sebaceous cyst in the inferior medial aspect of the right breast. Correlation with ultrasound is recommended. ASSESSMENT CATEGORY: BIRADS Category 0: Incomplete. Need additional imaging evaluation. A letter regarding these results will be sent to the patient by the facility within 30 days. Approximately 10% of breast cancers are not detected by mammography. A normal mammogram should not delay biopsy of a clinically suspicious abnormality. Electronically Signed: Rick Chow MD at 10:23 EDT ,
--- NOTE | 2024-04-09 09:15 | US_ITS ---
STUDY: ULTRASOUND BREAST - RIGHT REASON FOR EXAM: Female, 73 years old. Sebaceous cyst. TECHNIQUE: Axial and longitudinal images of the RIGHT breast were performed with a high resolution ultrasound transducer. # OF IMAGES: 19 COMPARISON: Comparison is made with prior mammogram done earlier in the day. FINDINGS: RIGHT Breast: The inferior medial aspect of the right breast was examined with ultrasound. There is evidence of a superficial 7 mm x 12 mm x 4 mm cystic structure just deep to the skin surface suggestive of a sebaceous cyst. US/Breast Limited Unilateral IMPRESSION: Findings suggestive of a sebaceous cyst in the inferior medial aspect of the right breast. ASSESSMENT CATEGORY: BIRADS Category 2: Benign. A letter regarding these results will be sent to the patient by the facility within 30 days. Electronically Signed: Rick Chow MD at 14:24 EDT ,
== END | disposition home or self-care (01) ==
PROVIDERS: PCP Family Medicine; Referring Provider Family Medicine; Visit Provider Family Medicine
DX: N60.81 Other benign mammary dysplasias of right breast (principal)
CPT/HCPCS: 76642; 77062; 77066; G0279

== ENCOUNTER → 2024-04-15 | Outpatient (CLI) | payer MEDICARE, OTHER, SELFPAY ==
[2024-04-15 12:28] LABS: Free T3 2.2 pg/mL (2.18-3.98); T4 Free Direct 1.09 ng/dL (0.76-1.46); Thyroid Stim Hormone (TSH) 1.49 uIU/mL (0.358-3.74)
[2024-04-15 22:22] LABS: Microalbumin:Creatinine Ratio 6.5 mg/g CRE (<30 mg/g CRE)
== END | disposition home or self-care (01) ==
PROVIDERS: PCP Family Medicine; Referring Provider Family Medicine; Visit Provider Family Medicine
DX: I10 Essential (primary) hypertension (principal); E03.9 Hypothyroidism, unspecified
CPT/HCPCS: 36415; 82043; 82570; 84439; 84443; 84481

== ENCOUNTER → 2024-10-08 | Outpatient (CLI) | payer MEDICARE, OTHER, SELFPAY ==
[2024-10-08 16:43] LABS: Anion Gap 5 (5-15); Chloride 109 mmol/L (98-107); Creatinine, Serum 0.73 mg/dL (0.55-1.02); EST Glomerular Filtration Rate 83 mL/min (>60); Est Glom Filt Rate - Afr Amer 100 mL/min (>60); Potassium 4.3 mmol/L (3.5-5.1); Sodium Level 141 mmol/L (136-145)
== END | disposition home or self-care (01) ==
LOC: LAB 15:28
PROVIDERS: PCP Family Medicine; Referring Provider Family Medicine; Visit Provider Family Medicine
DX: I10 Essential (primary) hypertension (principal)
CPT/HCPCS: 36415; 80051; 82565

== ENCOUNTER → 2025-04-30 | Outpatient (CLI) | payer MEDICARE, OTHER, SELFPAY ==
[2025-04-30 19:23] LABS: Creatinine, Urine (random) 35.50 mg/dL (28.00-217.00); Microalbumin,Random Urine < 12.0 mg/L (NO RANGE EST.)
== END | disposition home or self-care (01) ==
PROVIDERS: PCP Family Medicine; Referring Provider Family Medicine; Visit Provider Family Medicine
DX: I10 Essential (primary) hypertension (principal); E03.9 Hypothyroidism, unspecified
CPT/HCPCS: 36415; 82043; 82570; 84443

== ENCOUNTER 2025-08-05 00:11 | Emergency (ER) | payer MEDICARE, OTHER, SELFPAY ==
[2025-08-05 00:11] VITALS: PULSE 100; RESP 111; TEMP 36.7; O2SAT 99; BMI 28.8
[2025-08-05] MEDS: 0.9% Normal Saline (1000mL) 1,000 ML 999 ML IV (00:39)
--- NOTE | 2025-08-05 00:45 | CT_ITS ---
PROCEDURE: ABDOMEN/PELVIS W IV CONT ONLY 08/05/2025 REASON FOR EXAM: ABD PAIN TECHNIQUE: Procedure Code: [id number] Modality: CT Procedure: ABDOMEN/PELVIS W IV CONT ONLY Coronal and Sagittal reconstruction series were provided. CONTRAST: VOLUME: mL One or more dose reduction techniques were used (e.g., Automated exposure control, adjustment of the mA and/or kV according to patient size, use of iterative reconstruction technique. FINDINGS: The visualized lung bases are clear. Small hiatal hernia. Mild fatty infiltration of the liver. The gallbladder, pancreas, spleen, adrenal glands, kidneys, and urinary bladder appear unremarkable. A large amount of stool is noted within the rectum, with moderate perirectal fat stranding, which may represent proctitis. No evidence of a bowel obstruction. No bowel wall thickening. The appendix is visualized and unremarkable. No intraperitoneal free air or free fluid. Mild atherosclerotic calcifications. No abdominal nor pelvic lymphadenopathy. No acute osseous abnormality. No acute fracture. Moderate degenerative changes in the lower lumbar spine. A sclerotic focus in the anterior aspect of the L2 vertebral body likely represents a benign bone island. CT/Abdomen/Pelvis W IV Cont ONLY IMPRESSION: 1. Large amount of stool within the rectum, with moderate perirectal fat stran ding which may represent proctitis. 2. Small hiatal hernia. 3. Mild fatty liver. 4. Moderate lower lumbar spondylosis. Reading Location: [id number]
[2025-08-05 00:47] LABS: Hematocrit 44.7 % (37-47); Hemoglobin 14.6 g/dL (12.0-15.0); Immature Granulocytes Count 0.060 X10^3/uL (0.0-0.0); Mean Corp Hgb Conc 32.7 g/dL (32-36); Mean Corpuscular Volume 85.0 fL (81-99); Mean Platelet Vol. 9.8 fl (6.2-12.0); NRBC Flagged by Analyzer 0 % (0-5); Platelet Count 287 K/mm3 (150-450); RBC Distribution Width CV 13.6 % (11.6-14.6); RBC Distribution Width SD 42.3 fl (35.1-43.9); Red Blood Count 5.26 M/mm3 (4.2-5.4); White Blood Count 17.5 K/mm3 (4.4-11.0)
[2025-08-05 01:12] LABS: AST(SGOT) 22 U/L (<=31); Alanine Aminotransfer ALT/SGPT 19 U/L (<=34); Albumin, Serum 4.2 g/dL (3.4-4.8); Alkaline Phosphatase 119 U/L (35-104); Anion Gap 13 (5-15); BUN 17 mg/dL (4-19); BUN/Creat Ratio 22.3 RATIO (10-20); Bilirubin, Direct 0.29 mg/dL (0.00-0.30); Calcium,Total 9.0 mg/dL (7.6-11.0); Carbon Dioxide 20.3 mmol/L (21.0-32.0); Chloride 103 mmol/L (98-108); Estimated Creatinine Clearance 63.85 ml/min (50-250); Globulin 2.7 g/dL (2.2-4.2); Glucose 140 mg/dL (70-99); Lipase 20 U/L (13-75); Magnesium 1.9 mg/dL (1.5-2.2); Potassium 4.1 mmol/L (3.3-5.1)
[2025-08-05 01:43] VITALS: BP 133/74
--- NOTE | 2025-08-05 02:32 | EX.ED.DYSGE1 ---
HPI History of Present Illness Chief Complaint: Constipation Informant: patient and spouse/S.O. Narrative Narrative: Patient is a 74-year-old female with past med history of hypertension hyperlipidemia and hypothyroidism. She states that roughly 5 to 6 days ago she had the stomach bug where she was nauseous and vomiting and having loose stool. She states those symptoms improved but now she has been struggling with constipation. She states that after using the restroom she felt like her rectum prolapsed. She states she was able to use a suppository and pressure and believes she was able to reinsert the rectum. However that she still feels a area of swelling and is concerned that it may not have resolved on its own and secondary to this comes in for evaluation. [facility] Medical History (Updated 08/05/25 @ 02:[address] Bran Driver, DO) Hypothyroidism High cholesterol Home Medications ?Medication ?Instructions ?Recorded ?Last Taken ?Type levothyroxine 100 mcg tablet 100 mcg PO DAILY 01/27/16 Unknown History aspirin 81 mg chewable tablet 81 mg PO DAILY@0800 02/29/16 Unknown History atorvastatin 20 mg tablet 20 mg PO QHS 02/29/16 Unknown History carvedilol 6.25 mg tablet 6.25 mg PO BID #90 TABLETS 03/01/16 Unknown Rx amitriptyline 10 mg tablet 10 mg PO DAILY 04/29/24 Unknown History cholecalciferol (vitamin D3) 50 50 mcg PO DAILY 04/29/24 Unknown History mcg (2,000 unit) capsule magnesium citrate 100 mg tablet 300 mg PO DAILY 04/29/24 Unknown History melatonin 1 mg tablet 1 mg PO HS PRN sleep 04/29/24 Unknown History telmisartan 20 mg tablet 20 mg PO DAILY 04/29/24 Unknown History nitroglycerin 0.4 mg sublingual 0.4 mg sublingual Q5M PRN chest 08/05/25 Unknown History tablet pain polyethylene glycol 3350 17 17 g PO DAILY #510 grams 08/05/25 Unknown Rx gram/dose oral powder (Miralax) Allergy/AdvReac Type Severity Reaction Status Date / Time azithromycin Allergy Rash Verified 08/05/25 00:12 tetracycline Allergy Rash Verified 08/05/25 00:12 Surgical History H/O: hysterectomy History of lumpectomy of right breast H/O thyroidectomy Social History Smoking Status: Never smoker ROS ROS ED Constitutional Constitutional ED: Denies chills or fever(s) ENT ENT ED: Denies sore throat Cardiovascular Cardiovascular: Denies chest pain Respiratory/Chest Respiratory/Chest: Denies cough or dyspnea Gastrointestinal Gastrointestinal: Reports abdominal pain and constipation; Denies diarrhea, nausea or vomiting Genitourinary Genitourinary ED: Denies dysuria Musculoskeletal Musculoskeletal: Denies back pain or myalgias Integumentary Denies rash Neurologic Neurologic: Denies headache(s) Hematologic/Lymphatic Hematologic/Lymphatic: Denies easy bleeding or easy bruising EXAM Physical Exam Const Vital Signs: 08/05/25 00:11 08/05/25 01:43 08/05/25 02:34 Temperature 98.1 F 98.2 F Temperature Source Oral Pulse Rate 100 62 Respiratory Rate 111 H 18 Blood Pressure 133/74 H 129/77 H Blood Pressure Mean 93 94 Pulse Ox 99 95 Oxygen Delivery Method Room Air Positive well nourished and well developed General Appearance ED: well developed; Negative for pallor HEENT HEENT Narrative: Normocephalic atraumatic Eyes PERRL and EOMs intact bilaterally General Eye ED: Negative for scleral icterus Neck supple Resp normal respiratory effort and clear to auscultation bilaterally Cardio regular rate and regular rhythm Rate: other Other Details: Radial and carotid pulses are equal and symmetric GI non-distended and no masses GI Narrative: Abdomen is soft and nondistended with hypoactive bowel sounds. There is mild pain with palpation in the right lower quadrant without voluntary guarding or rigidity or pulsatile mass Auscultation: hypoactive bowel sounds Palpation: soft Narrative: Rectal exam shows nonthrombosed nonbleeding external hemorrhoid. No prolapsed rectum noted. Rectal tone is normal. There is a large ball of stool at the tip of my finger consistent with constipation. Stool is brown in color. Back/Spine no CVA tenderness Extremity normal to inspection Neuro oriented x3, CN's II-XII intact bilaterally and no sensory deficits noted Sensorium / Orientation: alert Motor Exam: strength 5/5 throughout Psych mental status grossly normal Skin no rashes or lesions noted General Skin Exam: Negative for jaundice or pallor MDM MDM MDM Narrative Medical decision making narrative: Patient presented to the ER with stable vitals. She reported concern for rectal prolapse that may have been partially treated at home. She also reports constipation which she states is not normal for her and therefore her abdominal discomfort could be related to diverticulitis or small bowel obstruction or colitis. Secondary to his I did elect perform basic laboratory studies and a CT scan with IV contrast. White count is elevated 17.5 but otherwise no clinically significant laboratory findings. CT scan shows changes consistent with constipation with proctitis consistent with the constipation but no obvious signs of abscess perforation or small bowel obstruction. The patient was given an enema and had a large bowel movement in the ER. She reported feeling better after this and her abdomen remains soft and nonsurgical. I feel the elevation of her white count is secondary to stress response as the CT scan does not reveal any signs of a acute infection. Therefore this time his vitals are stable and patient is had resolution of symptoms I do not feel need for further intervention or workup and she is otherwise safe for discharge. History & Record Review Discussion w/independent historian: Patient and Significant other Lab Data Attestation: I reviewed the patient's lab results. Labs: Laboratory Results - last 24 hr 08/05/25 00:40 WBC 17.5 H RBC 5.26 Hgb 14.6 Hct 44.7 MCV 85.0 MCH 27.8 MCHC 32.7 RDW Std Deviation 42.3 RDW Coeff of Stacey 13.6 Plt Count 287 MPV 9.8 Immature Gran % (Auto) 0.300 Neut % (Auto) 80.0 H Lymph % (Auto) 12.4 L Falls % (Auto) 6.9 Eos % (Auto) 0.2 Baso % (Auto) 0.2 Absolute Neuts (auto) 14.0 H Absolute Lymphs (auto) 2.16 Nucleated RBC % 0 Sodium 136 Potassium 4.1 Chloride 103 Carbon Dioxide 20.3 L Anion Gap 13 BUN 17 Creatinine 0.76 Estim Creat Clear Calc 63.85 Est GFR (MDRD) Non-Af 82 BUN/Creatinine Ratio 22.3 H Glucose 140 H Calcium 9.0 Magnesium 1.9 Total Bilirubin 0.64 Direct Bilirubin 0.29 AST 22 ALT 19 Alkaline Phosphatase 119 H Total Protein 6.8 Albumin 4.2 Globulin 2.7 Lipase 20 TSH 2.870 Radiography Diagnostic Testing: Clinical Impression(s) from Imaging Studies Abdomen/Pelvis CT 08/05/25 00:45 IMPRESSION: 1. Large amount of stool within the rectum, with moderate perirectal fat stranding which may represent proctitis. 2. Small hiatal hernia. 3. Mild fatty liver. 4. Moderate lower lumbar spondylosis. Reading Location: [id number] Discharge Plan Triage Chief Complaint: Constipation ED Provider: Bran Driver Dx/Rx/DC Orders Clinical Impression: Constipation, Hypertension, Hyperlipidemia, Hypothyroidism Instructions: Treating Constipation, ED Constipation (Adult) Prescriptions: New polyethylene glycol 3350 [Miralax] 17 gram/dose powder 17 g PO DAILY Qty: 510 0RF No Action amitriptyline 10 mg tablet 10 mg PO DAILY telmisartan 20 mg tablet 20 mg PO DAILY melatonin 1 mg tablet 1 mg PO HS PRN (Reason: sleep) cholecalciferol (vitamin D3) 50 mcg (2,000 unit) capsule 50 mcg PO DAILY magnesium citrate 100 mg tablet 300 mg PO DAILY levothyroxine 100 MCG tablet 100 mcg PO DAILY Patient Comments: thyroid atorvastatin 20 MG tablet 20 mg PO QHS Patient Comments: lower cholesterol aspirin 81 MG tablet,chewable 81 mg PO DAILY@0800 Patient Comments: heart health carvedilol 6.25 MG tablet 6.25 mg PO BID Qty: 90 0RF Patient Comments: heart/blood pressure nitroglycerin 0.4 mg tablet, sublingual 0.4 mg sublingual Q5M PRN (Reason: chest pain) Primary Care Provider: Pastor Perez Referrals: Pastor Perez MD [Primary Care Provider, Family Practice] Activity Restrictions/Additional Instructions: Please continue all of your home medications as directed by your doctor but add the MiraLAX once a day for the next 3 to 7 days to help prevent any recurrent bouts of constipation. Return to the ER should you have any further concerns or worsening of symptoms Print Language: Amharic Disposition Disposition: Home, Self Care Discharge Date/Time: 08/05/25 02:39
[2025-08-05 02:34] VITALS: BP 129/77; PULSE 62; RESP 18; TEMP 36.8; O2SAT 95
== END 2025-08-05 02:39 | disposition home or self-care (01) ==
PROVIDERS: Emergency Provider Emergency Medicine; PCP Family Medicine; Visit Provider Emergency Medicine
DX: K59.00 Constipation, unspecified (principal); E78.5 Hyperlipidemia, unspecified; I10 Essential (primary) hypertension; E03.9 Hypothyroidism, unspecified; Z79.890 Hormone replacement therapy; Z79.899 Other long term (current) drug therapy; Z90.710 Acquired absence of both cervix and uterus
CPT/HCPCS: 74177; 80048; 80076; 83690; 83735; 84443; 85025; 96360; 96361; 99283; Q9967; A4216

== ENCOUNTER → 2025-08-13 | Outpatient (CLI) | payer MEDICARE, OTHER, SELFPAY | END | disposition home or self-care (01) | PROVIDERS: PCP Family Medicine; Referring Provider Family Medicine; Visit Provider Family Medicine | DX: K62.89 Other specified diseases of anus and rectum (principal) | CPT/HCPCS: 87493 ==

== ENCOUNTER 2025-08-27 11:00 | Outpatient (RCR) | payer MEDICARE, OTHER, SELFPAY ==
--- NOTE | 2025-06-23 12:00 | HP.PTEVAL ---
Patient's Visit Information Visit Information Visit Information: ALEXX BOUDREAUX is a 74 year old F referred to Physical Therapy by Dr. Pastor Perez MD with a diagnosis of PES ASERINE BURSITIS BILATERAL KNEE. Date of Evaluation: 06/23/25 Physical Therapist: Neftaly Wood, PT, Cert MDT, OCS Visit Plan Frequency: 2x /Week Duration: 4 Weeks Plan: PT INTERVENTIONS AQUATIC THERAPY WITH ROM /FLEXABILITY BILATERAL KNEE ,STRENGTHENING QUADS/HAMS/HIP , FUNCTIONAL STRENGTHENING AND ACTIVITY MODIFICATION Subjective Subjective: This 74 y/o female presents to physical therapy with bilateral knee pain. Patient has had knee pain many years since 2017. Patient had episode with knee pain in summer walking on unsupported shoes. Seen Dr recommended PT prescribed prednisone which temporarily helped . Pain located medial knee left > right. Pain described as sharp pain and burning pain. Tried ex's on own. Patient aggravating factors walking/standing ,squatting / kneeling and stairs. Alleviating factors advil. Denies paresthesia/tingling . Pain affects sleeping .Patient pain affects QOL and function. Patient has contributing factors fibromyalgia. Patient goals to decrease with walking like hobbies bird watching. Patient has [employer] membership. Patient has no imaging . 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 and mild pes anserine bursitis GAIT: reciprocal pattern EDEMA: unremarkable STAIRS: descend one step time due to weakness and pain AROM: supine knee flexion 0-130 degrees pain with OP FLEXABILITY: hamstrings min tight MMT: ( peak force) quads right 22.6 ,left 18.8 ,hamstrings left 17.0 ,right 17.3 ,hip flexion left 16.6 ,right 19.1,hip abduction right 17,2 .left 16.3 Special Tests R Knee Valgus - MCL: Negative R Knee Varus - LCL: Negative Comments: NT nate L Knee Valgus - MCL: Negative L Knee Varus - LCL: Negative Comments: NT Kitty Balance/Special Test Scores Lower Extremity Functional Score: 31 Goals Goal 1:: Patient to be I with Aquatic Therapy program Goal Time Frame: 4-6 Weeks Goal 2:: Patient to improve peak force quads/hams/hip by 5-10# to improve gait and ADLS and stairs Goal Time Frame: 4-6 Weeks Goal 3:: Patient to demonstrate 50% improvement with less pain and improved function. Goal Time Frame: 4-6 Weeks Goal 4:: Patient to improve LFES score by 5 points to improve QOL Goal Time Frame: 4-6 Weeks Goal 5:: Patient be able to walk /stand to perform ADLS and housework/hobbies with min limitations Goal Time Frame: 4-6 Weeks Rehabilitation Potential Physical Therapy Diagnosis: Patient has bilateral knee pain with weakness quads/hams/hip ,joint line tenderness left >right and bursae ,impairs walking and standing affects ADL and hobbies along with fibromyalgia contributing factor thus benefit from skilled PT Rehabilitation Potential: Good Anticipated Interventions Patient/Client Instruction: Educate patient on: Condition For the Purpose of:: To decrease pain, To increase ROM, To improve muscle performance and motor function, To improve ability to perform ADL's, To increase tolerance to activity/condition/position, To improve ability of physical actions for home/community/work/leisure, To improve gait and locomotor functions, To increase flexibility/ROM, To improve safety with gait, To reduce risk of recurrence and To prevent re-injury Therapeutic Exercise to Include: Strength training, Endurance training, Balance training, Flexibilty training, "In an aquatic setting" and Active ROM Comment: QUADS/HAMS/HIP For the Purpose of:: To decrease pain, To increase ROM, To improve muscle performance and motor function, To improve ability to perform ADL's, To increase tolerance to activity/condition/position, To improve ability of physical actions for home/community/work/leisure, To improve gait and locomotor functions, To improve health of tissue, To decrease soft tissue restriction and To increase flexibility/ROM Text: Thank you for the opportunity to evaluate your patient. For Medicare and Medicare HMO plans, please review the plan of care and approve it. It will need to be FAXED BACK to us at [phone] for Medicare purposes. For Medicare only, by signing this I certify the plan of care. Please let me know if there are questions or concerns regarding this plan of care. Physician Signature: Date:
--- NOTE | 2025-07-25 10:52 | HP.PTREVAL_ITS ---
Re-Evaluation Intro: Dr. Pastor Perez MD, It has been my pleasure to treat ALEXX BOUDREAUX over the last 9 visits for PES ASERINE BURSITIS BILATERAL KNEE. Please see the progress note below for an update on the physical therapy plan of care! 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 and mild pes anserine bursitis GAIT: reciprocal pattern EDEMA: unremarkable STAIRS: descend one step time due to weakness and pain AROM: supine knee flexion 0-130 degrees mild pain with OP FLEXABILITY: hamstrings min tight MMT: ( peak force) quads right 34.9 ,left 29.8 ,hamstrings left 30.5 ,right 34.3 ,hip flexion left 25.6 ,right 23.1,hip abduction right 17,2 .left 16.3 Plan Plan Plan: PT INTERVENTIONS AQUATIC THERAPY WITH ROM /FLEXABILITY BILATERAL KNEE ,STRENGTHENING QUADS/HAMS/HIP , FUNCTIONAL STRENGTHENING AND ACTIVITY MODIFICATION Balance/Gait/Functional tests Balance/Special Test Scores Lower Extremity Functional Score: 31 Goals Goals Goal 1:: Patient to be I with Aquatic Therapy program Goal Time Frame: 4-6 Weeks Goal Progress: Progressing Goal 2:: Patient to improve peak force quads/hams/hip by 5-10# to improve gait and ADLS and stairs( new goals) Goal Time Frame: 4-6 Weeks Goal 3:: Patient to demonstrate 70% improvement with less pain and improved function.( new goals) Goal Time Frame: 4-6 Weeks Goal 4:: Patient to improve LFES score by 5 points to improve QOL Goal Time Frame: 4-6 Weeks Goal Progress: Progressing Goal 5:: Patient be able to walk /stand to perform ADLS and housework/hobbies with min limitations Goal Time Frame: 4-6 Weeks Goal Progress: Progressing Anticipated Interventions Anticipated Interventions Patient/Client Instruction: Educate patient on: Condition For the Purpose of:: To decrease pain, To increase ROM, To improve muscle p erformance and motor function, To improve ability to perform ADL's, To increase tolerance to activity/condition/position, To improve ability of physical actions for home/community/work/leisure, To improve gait and locomotor functions, To increase flexibility/ROM, To improve safety with gait, To reduce risk of recurrence and To prevent re-injury Therapeutic Exercise to Include: Strength training, Endurance training, Balance training, Flexibilty training, "In an aquatic setting" and Active ROM Comment: QUADS/HAMS/HIP For the Purpose of:: To decrease pain, To increase ROM, To improve muscle performance and motor function, To improve ability to perform ADL's, To increase tolerance to activity/condition/position, To improve ability of physical actions for home/community/work/leisure, To improve gait and locomotor functions, To improve health of tissue, To decrease soft tissue restriction and To increase flexibility/ROM Re-Evaluation Ending Re-evaluation ending: Please do not hesitate to contact me at [phone] by phone or if you have questions or concerns regarding this new plan of care! Sincerely, Neftaly Wood, PT, Cert MDT, OCS
--- NOTE | 2025-08-27 11:22 | HP.PTDCSUM ---
Discharge Summary D/C summary: It has been my pleasure to treat ALEXX BOUDREAUX referred by Dr. Psator Perez MD, with the diagnosis of PES ASERINE BURSITIS BILATERAL KNEE for a total of 17 visit(s). Discharge Date: 08/27/25 Please see the following information for a summary of their discharge status. 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 MILD GAIT: reciprocal pattern EDEMA: unremarkable STAIRS: ALTEANTING STEPS AROM: supine knee flexion 0-130 degrees mild stiffness with OP FLEXABILITY: hamstrings min tight MMT: ( peak force) quads right 34.9 ,left 32.8 ,hamstrings left 37.5 ,right 34.3 ,hip flexion left 35.6 ,right 32.1,hip abduction right 17,2 .left 16.3 Goals Goal 1:: Patient to be I with Aquatic Therapy program Goal Progress: Goal Met Goal 2:: Patient to improve peak force quads/hams/hip by 5-10# to improve gait and ADLS and stairs( new goals) Goal Progress: Goal Met Goal 3:: Patient to demonstrate 70% improvement with less pain and improved function.( new goals) Goal Progress: Goal Met Goal 4:: Patient to improve LFES score by 5 points to improve QOL Goal Progress: Goal Met Goal 5:: Patient be able to walk /stand to perform ADLS and housework/hobbies with min limitations Goal Progress: Goal Met Plan Plan: D/C TO [facility] Aquatics D/C Information Discharge Comments: Aquatics d/c sentence: If there are questions or concerns regarding this patient's physical therapy, please feel free to call me at [phone]. Thank you for the referral of this patient. Sincerely, Neftaly Wood, PT, Cert MDT, OCS Balance/Gait/Functional tests Balance/Special Test Scores Lower Extremity Functional Score: 54 Improvement % Improvement: 95
== END 2025-08-27 19:00 | disposition home or self-care (01) ==
LOC: PT 11:00
PROVIDERS: PCP Family Medicine; Referring Provider Family Medicine; Visit Provider Family Medicine
DX: M76.892 Other specified enthesopathies of left lower limb, excluding foot (principal)
CPT/HCPCS: 97113; 97162; 97530